=== PATIENT | female | born 1950 | race Native Hawaiian/Other Pacific Islander ===

== ENCOUNTER 2020-06-30 13:28 | Outpatient (CLI) | payer OTHER | END 2020-06-30 21:38 | disposition home or self-care (01) | LOC: INF 13:28 | PROVIDERS: ATTEND Internal Medicine Endocrinology, Diabetes & Metabolism | DX: Z23 Encounter for immunization (principal) | CPT/HCPCS: 96372 ==

== ENCOUNTER 2020-07-26 09:55 | Outpatient (CLI) | payer OTHER | END 2020-07-26 23:03 | disposition home or self-care (01) | LOC: INF 09:55 | PROVIDERS: ATTEND Internal Medicine Endocrinology, Diabetes & Metabolism | DX: Z23 Encounter for immunization (principal) | CPT/HCPCS: 96372 ==